=== PATIENT | male | born 1965 | race Caucasian/White ===

== ENCOUNTER → 2021-03-24 11:32 | Outpatient (BNVA) | payer OTHER, SELFPAY | PROVIDERS: Family Provider Family Medicine; PCP Family Medicine; Visit Provider Surgery | DX: Z01.812 Encounter for preprocedural laboratory examination (principal); Z20.822 Contact with and (suspected) exposure to COVID-19 | CPT/HCPCS: 87635 ==

== ENCOUNTER 2021-03-29 07:29 | Day surgery (SDC) | payer OTHER, SELFPAY ==
[2021-03-29] VITALS (8 sets, daily range): BP systolic 96–119; BP diastolic 72–80; PULSE 52–75; RESP 16–18; TEMP 36.2–37.1; O2SAT 94–97; BMI 34.0
--- NOTE | 2021-03-29 07:43 | W.PM.OPSUD ---
Surgery/Procedure H&P Update DATE OF PROCEDURE: March 29, 2021 DATE H&P PERFORMED: 03/21/21 H&P UPDATE INFORMATION: I have reviewed H&P completed within last 30 days, I have examined patient prior to procedure and No changes to prior documentation PREOP DIAGNOSIS: Hemorrhoids, hematochezia PLANNED PROCEDURE: Operation Date: 03/29/21 09:05 Proposed Procedures p Colonoscopy [id number] k64.9 k92.1(Not Applicable) - Shuan Blood MD s poss Hemorroidectomy and poss hemorrhoid banding(Not Applicable) - Shaun Blood MD
--- NOTE | 2021-03-29 08:06 | ANES.PREANE2 ---
Pre-Anesthetic Assessment Pre-Anesthetic Assessment: Height/Weight: Height 1.93 m Weight 127.006 kg Temp Pulse Resp BP Pulse Ox 97.1 F L 75 18 119/79 94 03/29/21 07:49 03/29/21 07:49 03/29/21 07:49 03/29/21 07:55 03/29/21 07:49 Preop Diagnosis: Hemorrhoids, hematochezia Proposed Procedure: Operation Date: 03/29/21 09:05 Proposed Procedures p Colonoscopy [id number] k64.9 k92.1(Not Applicable) - Shaun Blood MD s poss Hemorroidectomy and poss hemorrhoid banding(Not Applicable) - Shaun Blood MD Familial anesthetic complications: None Was Beta Nena taken within 24 hours: N/A Was Clonidine taken within 24 hours: N/A Last intake: Intake Last Liquid Date 03/28/21 Last Liquid Time 21:30 Last Solid Date 03/28/21 Last Solid Time 11:00 Social: Social History: No alcohol and No tobacco Exam: Pre-Anes Outpt Exam: alert, oriented x 3, clear to auscultation bilaterally and regular rate & rhythm Airway: Cervical ROM: WNL MP: 4 Dentition: Other (missing tooth) Anesthetic Plan: ASA status: 1 Anesthesia: General Risk of > 500 ml blood loss (7ml/kg in children): No PFSH Anesthesia PFSH: Medical History Hemorrhoids Surgical History History of colonoscopy with polypectomy 2003 History of hand surgery left thumb 2019 History of tonsillectomy 1970 Family History Other Lung disease Denies family history of Diabetes CAD (coronary artery disease) Dementia Chronic kidney disease (CKD) Cancer Hypertension Social History Smoking and tobacco status: never smoked Second hand smoke exposure: No Alcohol intake: current Alcohol intake frequency: few times a month Lives independently: Yes Household members: spouse and children Marital status: Data Anesthesia Cardiac Studies: No Data to Display
[2021-03-29] MEDS: sodium chloride 0.9% 1,000 ML 30 ML IV (08:09)
--- NOTE | 2021-03-29 10:05 | PM.OP ---
Operative Report Date of procedure: March 29, 2021 Pre-op Diagnosis: 1. Screening colonoscopy 2. History of hemorrhoids 3. Hematochezia Post-op Diagnosis: 1. Scattered diverticuli sigmoid colon 2. Descending colon 3 mm polyp removed with cold biopsy forceps 3. Sigmoid colon polyp 7 mm, sessile x2 removed with a hot snare 4. Grade 4 hemorrhoids x2, grade 2 hemorrhoids Procedure Done: 1. Colonoscopy with polypectomy using cold biopsy forceps 2. Colonoscopy with polypectomy using hot snare 3. Banding of hemorrhoid x1 4. Hemorrhoidectomy x2 Specimens removed/disposition: 1. Descending colon polyp 2. Sigmoid colon polyp x2 3. Hemorrhoids Surgeon: Shaun Blood Anesthesia: General Condition: stable Disposition: PACU Procedure: The patient was taken to the operating room and placed in the left lateral position under MAC. A colonoscope was introduced and advanced up to the cecum where the ileocecal valve and the appendicular orifice was visualized. The colonoscope was slowly withdrawn. The colon prep was fair. Cecum: Normal Ascending colon: Normal Transverse colon: Normal Descending colon: 5 mm sessile polyp removed with cold biopsy forceps Sigmoid colon: 7 mm sessile polyp x2 removed with a hot snare Rectum:: Grade 4 internal hemorrhoids MONICO:: Grade 4 internal hemorrhoids The perianal area was prepped and draped in a sterile manner. Examination under anesthesia revealed grade 4 internal hemorrhoids in the right lateral and left lateral location. 10 cc of saline mixed with 10 cc of Exparel mixed with 10cc of 0.5% Marcaine was infiltrated for a perianal block. The hemorrhoidal tissue on the left lateral location was grasped with Allis clamps, and using LigaSure the hemorrhoidal tissue was excised staying superficial to the sphincter muscle up to a point superior to the dentate line. The hemorrhoidal tissue on the right lateral location was grasped with Allis clamps, and using LigaSure the hemorrhoidal tissue was excised staying superficial to the sphincter muscle up to a point superior to the dentate line. There was no bleeding noted. The excised specimens were sent to pathology. A grade 2 hemorrhoid was identified in the left posterior location which was banded above the dentate line using a band applicator. A Vaseline gauze was placed in the anal canal and the patient was transferred to recovery room in stable condition.
--- NOTE | 2021-03-29 10:09 | P.PCN_ITS ---
PACU note PACU note: VSS, Good respiratory effort, report to BUILDING PRESSURE WASHER Post-Anesthesia Exam: awake
--- NOTE | 2021-03-29 10:09 | PM.PACU ---
PACU note PACU note: VSS, Good respiratory effort, report to NEGATIVE TURNER Post-Anesthesia Exam: awake
--- NOTE | 2021-03-29 10:57 | PC.NURSE ---
Nurse went over discharge instructions with patient and family. Given packet with written instruction. Instructed to make appointment to follow-up in one month, as nurse was unable to reach office to schedule a time.
--- NOTE | 2021-03-29 14:31 | ANE.PACU2 ---
Inpatient post-anesthesia follow up: Airway intact: Yes Vital signs: Temperature 98.7 F Pulse Rate 55 Respiratory Rate 18 Blood Pressure 113/73 Pulse Oximetry 96 Oxygen Delivery Me thod Room Air Oxygen Flow Rate Fraction of Inspir ed Oxygen Hydration adequate: Yes Nausea and vomiting: No Pain level: 2 Mental status: Baseline
== END 2021-03-29 10:58 | disposition home or self-care (01) ==
PROVIDERS: Family Provider Family Medicine; PCP Family Medicine; Visit Provider Surgery
PROC: 0DJD8ZZ Inspection of Lower Intestinal Tract, Via Natural or Artificial Opening Endoscopic (ICD-10-PCS; CPT 45378; principal; 2021-03-29 09:05)
PROC: (CPT 45380; 2021-03-29 09:05)
DX: K92.1 Melena (principal); K57.30 Diverticulosis of large intestine without perforation or abscess without bleeding; D12.4 Benign neoplasm of descending colon; D12.5 Benign neoplasm of sigmoid colon; K64.3 Fourth degree hemorrhoids
CPT/HCPCS: 45380; 45385; 45398; 46260; 88304; 88305; C9290; J2704; J3010; J3490; J7030

== ENCOUNTER 2023-08-11 15:35 | Emergency (ER) | payer OTHER, SELFPAY ==
[2023-08-11 16:02] VITALS: BP 142/90; PULSE 92; RESP 16; TEMP 36.8; O2SAT 97; BMI 33.5
--- NOTE | 2023-08-11 16:13 | XRR_ITS ---
PROCEDURE INFORMATION: Exam: XR Left Wrist Exam date and time: 08/11/2023 4:17 PM Age: 57 years old Clinical indication: Injury or trauma; Patient HX: Lt wrist pain with limited rom after hyperextension injury TECHNIQUE: Imaging protocol: Radiologic exam of the left wrist. Views: 3 or more views. COMPARISON: No relevant prior studies available. FINDINGS: Bones/joints: Osseous structures are intact. Negative for fracture. There appear to be intra-articular bodies within the wrist measuring up to 6 mm in size. 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 Soft tissues: Normal. XR/XR wrist LT min 3V* [id number] IMPRESSION: No acute findings.
--- NOTE | 2023-08-11 16:58 | W.ED.EXTPRO ---
HPI - Extremity Problem General: Chief complaint: Extremity Injury, Upper Stated complaint: possible broken left wrist Time Seen by Provider: 08/11/23 16:57 History of Present Illness: 57-year-old male presents emergency department with complaints of left wrist pain. He states he was working out in his yard when he felt a loud pop and a lot of pain. He states his initial pain was a 8 out of 10 but has improved. Patient states he thought he may have initially dislocated it. He states this happened approximately 11:00 today and thought that maybe it was out of place at that time but has popped back in place. He still states he is having some pain. He denies numbness or tingling to the extremity. He is able to move it through full range of motion. Review of Systems General: Reports: 10 or more systems reviewed and unremarkable except in HPI and below Musc: Reports: extremity pain and joint pain [facility] PFSH: Surgical History H/O hemorrhoidectomy (03/29/21) History of colonoscopy with polypectomy (03/29/21) 2004 History of hand surgery left thumb 2019 History of tonsillectomy 1970 Family History Other Lung disease Denies family history of Diabetes CAD (coronary artery disease) Dementia Chronic kidney disease (CKD) Cancer Hypertension Social History Second hand smoke exposure: No Alcohol intake: current Alcohol intake frequency: few times a month Substance/Drug Use: never Lives independently: Yes Household members: spouse and children Marital status: Physical Exam Narrative: EXAM NARRATIVE: The patient appeared well nourished and normally developed. Vital signs as documented. Head exam is unremarkable. No scleral icterus or corneal arcus noted. Neck is without jugular venous distension, thyromegaly, or carotid bruits. Carotid upstrokes are brisk bilaterally. Lungs are clear to auscultation and percussion. Cardiac exam reveals the PMI to be normally sized and situated. Rhythm is regular. First and second heart sounds normal. No murmurs, rubs or gallops. Abdominal exam reveals normal bowel sounds, no masses, no organomegaly and no aortic enlargement. Extremities are non-edematous and both femoral and pedal pulses are normal. Course Vital Signs: Vital signs: Vital Signs Temperature 98.2 F 08/11/23 16:02 Pulse Rate 90 08/11/23 18:26 Respiratory Rate 16 08/11/23 18:26 Blood Pressure 142/90 08/11/23 16:02 Pulse Oximetry 98 08/11/23 18:26 Oxygen Delivery Me thod Room Air 08/11/23 18:26 MDM - Extremity (Nontraumatic) Medical Decision Making Physical exam completed and documented, I will obtain a radiograph examination and apply a soft splint/Johnny wrap Medical Records I reviewed the patient's medical records. Lab Data Radiology Impressions Wrist X-Ray 08/11/23 16:13 IMPRESSION: No acute findings. All radiology interpretation(s) finalized by discharge Discharge Plan Discharge Patient Disposition: Home Clinical Impression: Sprain and strain of wrist Condition: Stable Prescriptions: New naproxen 500 mg tablet 500 mg PO Q12H Qty: 14 0RF No Action sennosides-docusate sodium [Senna with Docusate Sodium] 8.6-50 mg tablet 1 tab-cap PO BID Qty: 30 3RF azithromycin 250 mg tablet See Rx Instructions PO .COMPLEX Qty: 6 0RF Rx Instructions: take 500 mg today (day 1), then 250 mg for 4 days (days 2-5) PO albuterol sulfate [Ventolin HFA] 90 mcg/actuation HFA aerosol inhaler 2 puff inhalation Q6H PRN (Reason: shortness of breath or wheezing) Qty: 8.5 0RF methylprednisolone [Medrol (Bennett)] 4 mg tablets,dose pack See Rx Instructions PO PER PKG DIR Qty: 21 0RF Rx Instructions: PO PER PKG DIR albuterol sulfate 2.5 mg /3 mL (0.083 %) solution for nebulization 2.5 mg inhalation Q4H PRN (Reason: shortness of breath or wheezing) Qty: 90 0RF Discharge Orders: Discharge ED (Routine); Ordered 08/11/23 Ordered By: Eliud Orozco Referrals: Mack López MD [Primary Care Provider] - Discharge Diet: Advance as tolerated Discharge Activity: Resume usual activity Patient Instructions: Opioid Safety, Pain Management Activity Restrictions/Additional Instructions: Activity Restrictions/Additional Instructions: Thank you for choosing [facility] for your healthcare needs today. Please realize that you were seen in the Emergency Department and that we are providing you with an emergency medical screening exam and this may not be complete and all inclusive of all the testing and or medical work-up that you may need to determine your ailment or severity of your illness. It is very important that you follow-up as instructed with your Primary care provider or Specialist for additional evaluation and to discuss your medical treatment plan. You may return to the Emergency Department should you have concerns or if your condition changes or worsens in any way. Coding Level of Care Code ED Sterile Preparation Technician for Susie Morales
[2023-08-11] MEDS: ketorolac 60 mg/2 mL INJ IM (18:08)
[2023-08-11 18:26] VITALS: PULSE 90; RESP 16; O2SAT 98
== END 2023-08-11 18:27 | disposition home or self-care (01) ==
PROVIDERS: Emergency Provider Internal Medicine; PCP Family Medicine
DX: S63.502A Unspecified sprain of left wrist, initial encounter (principal); S66.912A Strain of unspecified muscle, fascia and tendon at wrist and hand level, left hand, initial encounter; X58.XXXA Exposure to other specified factors, initial encounter
CPT/HCPCS: 73110; 96372; 99284; J1885

== ENCOUNTER → 2024-02-28 16:22 | Outpatient (BNVA) | payer OTHER, SELFPAY | PROVIDERS: PCP Family Medicine; Visit Provider Registered Nurse Neonatal Intensive Care | DX: M54.50 Low back pain, unspecified | CPT/HCPCS: 81000 ==